=== PATIENT | male | born 1975 | race Caucasian/White ===

== ENCOUNTER 2018-05-26 13:34 | Emergency (ER) | payer OTHER ==
[~2018-05-26] VITALS: Ht 175.3 cm; Wt 87.5 kg
[~2018-05-26 13:34] MED LIST: ALTOPREV40 MG PO; ARTIFICIAL TEAR15 M1 OP; COUMADIN6 MG PO; METOPROLOL SUCC25 MG PO; OYSTER SHELL C NG; SERTRALINE HCL100 MG PO; TRIPLE ANTIBIOT28 GM TP; TYLENOL PM EX-1 EACH PO
== END 2018-05-26 14:15 | disposition home or self-care (01) ==
LOC: ED 13:34
PROC: 0HQGXZZ Repair Left Hand Skin, External Approach (ICD-10-PCS; principal; 2018-05-26)
DX: S61.213A Laceration without foreign body of left middle finger without damage to nail, initial encounter (principal); Z79.899 Other long term (current) drug therapy; Z79.01 Long term (current) use of anticoagulants; Z23 Encounter for immunization; W45.8XXA Other foreign body or object entering through skin, initial encounter; Y92.89 Other specified places as the place of occurrence of the external cause; Y99.0 Civilian activity done for income or pay
CPT/HCPCS: 12001; 90471; 90715; 99282

== ENCOUNTER 2018-12-01 14:37 | Emergency (ER) | payer OTHER ==
[~2018-12-01] VITALS: Ht 175.3 cm; Wt 87.5 kg
[2018-12-01] MEDS ORDERED: MECLIZINE HCL25 MG PO (17:34)
--- NOTE | 2018-12-01 23:20 | EKG ---
[facility] [address] [place], [place] [address] Signed Normal sinus rhythm Normal ECG No previous ECGs available Confirmed by MARY KAY BALL MD ([id number]) on 12/01/2018 11:20:05 PM Electronically Signed By: MARY KAY BALL MD 12/01/18 2320 PATIENT NAME: DONN CAROLINA Electrocardiogram DATE OF : 77 PHYSICIAN: MARY KAY BALL MD REPORT #: [id number] REPORT IS CONFIDENTIAL AND NOT TO BE RELEASED WITHOUT AUTHORIZATION
== END 2018-12-01 17:49 | disposition home or self-care (01) ==
LOC: ED 14:37
DX: R42 Dizziness and giddiness (principal); F41.9 Anxiety disorder, unspecified; Z79.01 Long term (current) use of anticoagulants; Z79.899 Other long term (current) drug therapy
CPT/HCPCS: 70450; 71045; 80053; 83880; 84484; 85025; 85610; 93005; 93010; 99285-25

== ENCOUNTER 2019-04-19 12:20 | Emergency (ER) | payer OTHER ==
[~2019-04-19] VITALS: Ht 175.3 cm; Wt 87.5 kg
--- OUTSIDE RECORDS SUMMARY | ~2019-04-19 | XMS | Clinical Summary ---
Demographics + + + | Address | [address] | | | [place] [address] | + + + | Home Phone | | + + + | Preferred Language | Unknown | + + + | Marital Status | Single | + + + | Cheondoism Affiliation | Unknown | + + + | Race | Unknown | + + + | Ethnic Group | Unknown | + + + Author + + + | Author | [facility] | + + + | Organization | [facility] | + + + | Address | Unknown | + + + | Phone | Unavailable | + + + Support + + +---------+ + | Name | Relationship | Address | Phone | + + +---------+ + | Paul Resendiz | ECON | Unknown | | + + +---------+ + | [employer] | ECON | Unknown | Unavailable | + + +---------+ + Care Team Providers + +------+ + | Care Mold Tooling Technician Name | Role | Phone | + +------+ + | Miquel Segovia MD | PP | | + +------+ + Allergies No Known Allergies Current Medications + + +--------+---------+------+------+-------+ | Prescription | Sig. | Disp. | Refills | Star | End | Statu | | | | | | t | Date | s | | | | | | Date | | | + + +--------+---------+------+------+-------+ | metoprolol | Take 25 mg by mouth | | | | | Activ | | (TOPROL-XL) 25 MG 24 | daily. | | | | | e | | hr tablet | | | | | | | + + +--------+---------+------+------+-------+ | sertraline | Take 150 mg by mouth | | | | | Activ | | (ZOLOFT) 100 MG | nightly. | | | | | e | | tablet | | | | | | | + + +--------+---------+------+------+-------+ | | Apply topically as | | | | | Activ | | neomycin-bacitracin- | needed. | | | | | e | | polymyxin | | | | | | | | (NEOSPORIN) | | | | | | | | [phone] ointment | | | | | | | + + +--------+---------+------+------+-------+ | acetaminophen | Take 500 mg by mouth | | | | | Activ | | (TYLENOL) 500 MG | every 6 (six) hours | | | | | e | | tablet | as needed. | | | | | | + + +--------+---------+------+------+-------+ | UNABLE TO FIND | CPAP machine | | | | | Activ | | | | | | | | e | + + +--------+---------+------+------+-------+ | Calcium | Take 500 mg by mouth | | | | | Activ | | Carbonate-Vitamin D | 2 (two) times | | | | | e | | (OYSTER SHELL | daily. | | | | | | | CALCIUM 500 + D PO) | | | | | | | + + +--------+---------+------+------+-------+ | polyvinyl alcohol | Place 1 drop into | | | | | Activ | | (LIQUIFILM TEARS) | both eyes as needed. | | | | | e | | 1.4 % ophthalmic | | | | | | | | solution | | | | | | | + + +--------+---------+------+------+-------+ | mupirocin | Apply 2 % topically | | | | | Activ | | (BACTROBAN) 2 % | as needed. | | | | | e | | ointment | | | | | | | + + +--------+---------+------+------+-------+ | cephALEXin | Take 500 mg by mouth | | | | | Activ | | (KEFLEX) 500 MG | as needed. Prior to | | | | | e | | capsule | dental work | | | | | | + + +--------+---------+------+------+-------+ | warfarin | Take 3 mg by mouth | | | | | Activ | | (COUMADIN) 3 MG | daily. [facility] | | | | | e | | tablet | regulates | | | | | | + + +--------+---------+------+------+-------+ | atorvastatin | Take 1 tablet by | 30 | 11 | /2 | 07/ | Activ | | (LIPITOR) 40 MG | mouth nightly. | tablet | | / | 3/20 | e | | tablet | | | | 18 | 19 | | + + +--------+---------+------+------+-------+ Active Problems + + + | Problem | Noted Date | + + + | Generalized anxiety disorder | 12/03/2018 | + + + | termite renewal inspector (current) use of anticoagulants | 11/13/2018 | + + + | Hypertension goal BP (blood pressure) < 130/80 | 05/25/2018 | + + + | Sleep apnea in adult | 05/25/2018 | + + + | Cognitive developmental delay | 05/25/2018 | + + + | H/O mitral valve replacement with mechanical valve | 12/23/2013 | + + + + + | Last Assessment & Plan: Hx PMV, MR. MVR 2008, On-X #33. | | Jail anticoagulation, target INR 2.5-3.5, managed by Care | | Team. Endocarditis prophylaxis reinforced. 40yo WM, | | history mitral valve replacement, chronic anticoagulation | | therapy. He is here with his caregiver. No incidence are | | reported. He remains active, denies any significant bruising or | | bleeding. Denies any new visual disturbances, dysarthria, | | dysphasia, lateralizing signs or symptoms. Tolerating | | medications. At this time no change in medical therapy. Recent | | Echocardiogram shows well preserved LVEF, mild prosthetic mitral | | valve stable with minimal gradient, stable. We did request | | labs, need to define goals with regards to lipid management. If | | the goal is primary prevention, it would be reasonable to more | | aggressive with medical therapy, consider changing lovastatin to | | high-dose atorvastatin.Hx CABG: no, MVR (On-X 33), 10/09/2009Hx | | PCI/stent: noHx Pacemaker/ICD: noLast Cath: naLast Echo, | | 07/22/2016 ([facility]): prelimenary report, LVEDd 58mm, LVEF | | 60-65%, MVR well seated, mean gradient 6mmHg, no MR noted.Last | | Stress Test, Cardiolite Stress, 09/13/2009: 10:20min Jaren, no | | chest pain, no ischemia detected, images "normal", LVEF 61%.ECG, | | 01/05/2015: sinus rhythm, OR at [facility], incomplete RBBB pattern. | + + + + + | Mixed hyperlipidemia | 12/23/2013 | + + + + + | Last Assessment & Plan: Hyperlipidemia, continue current med | | at current dose (lovastatin). Labs requested.Lab, 08/11/2015: T | | Chol: 212, LDL-Chol: 143, HDL-Chol: 47, Tri | | Liver enzymes NML, K: 4.4, BUN/Cr: 25/1.2 (GFR 71), | | glu: 81 TSH: 3.54, WBC: 4.3, H/H: | | 14.5/42.2, plt: 153 | + + Encounters +--------+---------+ + + + | Date | Type | Specialty | Care Team | Description | +--------+---------+ + + + | 04/15/ | Office | | Janet Campa | H/O mitral valve | | 2019 | Visit | | DEEPTHI Tripp | replacement with | | | | | | mechanical valve | | | | | | (Primary Dx); | | | | | | Hypertension goal BP | | | | | | (blood pressure) < | | | | | | 130/80; Sleep apnea | | | | | | in adult; Cognitive | | | | | | developmental delay; | | | | | | Mixed | | | | | | hyperlipidemia; | | | | | | Anticoagulated on | | | | | | Coumadin; Screening | | | | | | for iron deficiency | | | | | | anemia | +--------+---------+ + + + from Last 3 Months Family History + +------+--------+ + | Relation | Name | Status | Comments | + +------+--------+ + | Father | | Alive | | + +------+--------+ + | Mother | | Alive | | + +------+--------+ + Social History + +-------+ +--------+------+ | Tobacco Use | Types | Packs/Day | Years | Date | | | | | Used | | + +-------+ +--------+------+ | Never Smoker | | | | | + +-------+ +--------+------+ + +---+---+---+ | Smokeless Tobacco: | | | | | Never Used | | | | + +---+---+---+ + + +---------+ + | Alcohol Use | Drinks/We | oz/Week | Comments | | | ek | | | + + +---------+ + | No | 0 | 0.0 | 2 beeers every 2-3 months | | | Standard | | | | | drinks or | | | | | | | | | | equivalen | | | | | t | | | + + +---------+ + + + + | Sex Assigned at | Date Recorded | | | | + + + | Not on file | | + + + Last Filed Vital Signs + + + + | Vital Sign | Reading | Time Taken | + + + + | Blood Pressure | 102/64 | 04/15/2019 9:57 AM PDT | + + + + | Pulse | 68 | 04/15/2019 9:57 AM PDT | + + + + | Temperature | - | - | + + + + | Respiratory Rate | 18 | 10/15/2018 10:24 AM PST | + + + + | Oxygen Saturation | 97% | 04/15/2019 9:57 AM PDT | + + + + | Inhaled Oxygen | - | - | | Concentration | | | + + + + | Weight | 87.3 kg (192 lb 8 | 04/15/2019 9:57 AM PDT | | | oz) | | + + + + | Height | 175.3 cm (5' 9") | 04/15/2019 9:57 AM PDT | + + + + | Body Mass Index | 28.43 | 04/15/2019 9:57 AM PDT | + + + + Plan of Treatment + + + + + | Health Maintenance | Due Date | Last Done | Comments | + + + + + | Vaccine: Influenza | | 09/11/2016, 09/04/2012, | | | (Season Ended) | 9 | 11/06/2007, Additional history | | | | | exists | | + + + + + | Vaccine: | | 05/26/2018, 12/10/2013, | | | Dtap/Tdap/Td (9 - | 8 | 06/23/2010, Additional history | | | Td) | | exists | | + + + + + Results Not on filefrom Last 3 Months Insurance + +--------+ +------+-------+ + | Payer | Benefi | Subscriber | Type | Phone | Address | | | t Plan | ID | | | | | | / | | | | | | | Group | | | | | + +--------+ +------+-------+ + | MEDICAID | [place] | [id number] | | | [address] | | | [place] | | | | [place] | | | [place] | | | | [phone] | | | GENERAL OFFICE CLERK | | | | | + +--------+ +------+-------+ + + +--------+ +--------+ + + | Guarantor Name | Accoun | Relation to | Date | Phone | Billing Address | | | t Type | Patient | of | | | | | | | | | | + +--------+ +--------+ + + | DONN CAROLINA | Person | Self [birth year] Home: | [address] | | | al/Fam | | 1975 | [phone] [address] [place] | | | [place] | | [phone] | + +--------+ +--------+ + +
--- OUTSIDE RECORDS SUMMARY | ~2019-04-19 | XMS | Clinical Summary ---
Demographics + + + | Address | [address] | | | [place] [address] | + + + | Home Phone | | + + + | Preferred Language | Unknown | + + + | Marital Status | Single | + + + | Latter-Day Affiliation | Unknown | + + + | Race | Unknown | + + + | Ethnic Group | Unknown | + + + Author + + + | Author | [facility] | | | and [place] | + + + | Organization | [facility] | | | and [place] | + + + | Address | Unknown | + + + | Phone | Unavailable | + + + Support + + +---------+ + | Name | Relationship | Address | Phone | + + +---------+ + | Paul Resendiz | ECON | Unknown | | + + +---------+ + Care Team Providers + +------+ + | Care Tax Auditor Name | Role | Phone | + +------+ + | Miquel Lopes MD | PP | Unavailable | + +------+ + Allergies No Known Allergies Medications + + + +---------+------+------+-------+ | Medication | Sig | Dispensed | Refills | Star | End | Statu | | | | | | t | Date | s | | | | | | Date | | | + + + +---------+------+------+-------+ | carbamide peroxide | Place 5 drops in | | 0 | | | Activ | | (DEBROX) 6.5% otic | ear(s) as needed. | | | | | e | | solution | | | | | | | + + + +---------+------+------+-------+ | lovastatin | Take 40 mg by mouth | | 0 | | | Activ | | (MEVACOR) 40 MG | nightly. | | | | | e | | tablet | | | | | | | + + + +---------+------+------+-------+ | metoprolol | Take 25 mg by mouth | | 0 | | | Activ | | succinate | Daily. | | | | | e | | (TOPROL-XL) 25 mg 24 | | | | | | | | hr tablet | | | | | | | + + + +---------+------+------+-------+ | Oyster Shell 500 | Take 1 tablet by | | 0 | | | Activ | | MG TABS | mouth 2 times daily. | | | | | e | + + + +---------+------+------+-------+ | SERTRALINE HCL PO | Take 150 mg by mouth | | 0 | | | Activ | | | Daily. | | | | | e | + + + +---------+------+------+-------+ | | Apply topically. | | 0 | | | Activ | | Neomycin-Bacitracin- | PRN cut & abrasions | | | | | e | | Polymyxin (TRIPLE | | | | | | | | ANTIBIOTIC) | | | | | | | | 3.5-400-5000 OINT | | | | | | | + + + +---------+------+------+-------+ | Acetaminophen | Take by mouth. OTC | | 0 | | | Activ | | (TYLENOL PO) | Extra Strength PO | | | | | e | | | PRN pain or fever | | | | | | + + + +---------+------+------+-------+ | warfarin | Take 5 mg by mouth | | 0 | | | Activ | | (COUMADIN) 5 mg | Every other day. | | | | | e | | tablet | | | | | | | + + + +---------+------+------+-------+ | warfarin | Take 6 mg by mouth | | 0 | | | Activ | | (COUMADIN) 6 MG | Every other day. | | | | | e | | tablet | | | | | | | + + + +---------+------+------+-------+ | polyvinyl alcohol | 1 drop as needed. | | 0 | | | Activ | | (ARTIFICIAL TEARS) | | | | | | e | | 1.4% ophthalmic | | | | | | | | solution | | | | | | | + + + +---------+------+------+-------+ Active Problems + + + | Problem | Noted Date | + + + | Lumbar radiculopathy | 11/24/2012 | + + + | Scoliosis | 11/24/2012 | + + + | Spondylolisthesis, grade 2 | 11/24/2012 | + + + | Sleep apnea | | + + + | Anxiety | | + + + | Back pain | | + + + Social History + +-------+ +--------+------+ | [...] + + +---------+ + | No | | | | + + +---------+ + + + + | Sex Assigned at | Date Recorded | | | | + + + | Not on file | | + + + + + + + | Job Start Date | Occupation | Industry | + + + + | Not on file | Not on file | Not on file | + + + + + + + + | Travel History | Travel Start | Travel End | + + + + + + | No recent travel history available. | + + Last Filed Vital Signs + + + + | Vital Sign | Reading | Time Taken | + + + + | Blood Pressure | 110/75 | 02/17/20131048 PDT | + + + + | Pulse | 72 | 02/17/20131048 PDT | + + + + | Temperature | - | - | + + + + | Respiratory Rate | 18 | 02/17/20131048 PDT | + + + + | Oxygen Saturation | - | - | + + + + | Inhaled Oxygen | - | - | | Concentration | | | + + + + | Weight | 90.7 kg (200 lb) | 02/17/20131048 PDT | + + + + | Height | 182.9 cm (6') | 02/17/20131048 PDT | + + + + | Body Mass Index | 27.12 | 02/17/20131048 PDT | + + + + Plan of Treatment + + + + + | Health Maintenance | Due Date | Last Done | Comments | + + + + + | Vaccine: | | | | | Dtap/Tdap/Td (1 - | 5 | | | | Tdap) | | | | + + + + + | Vaccine: Influenza | | | | | (Season Ended) | 9 | | | + + + + + Results Not on filefrom Last 3 Months Insurance + +--------+ +--------+ +---------+--------+ | Payer | Benefi | Subscriber | Effect | Phone | Address | Type | | | t Plan | ID | liyah | | | | | | / | | Dates | | | | | | Group | | | | | | + +--------+ +--------+ +---------+--------+ | [employer] | [employer] | [id number] | | [phone] | | Medica | | MEDICAID HMO | HEALTH | | 012-Pr | 1 | | id | | | MDCD | | esent | | | | | | HMO [place] | | | | | | + +--------+ +--------+ +---------+--------+ + +--------+ +--------+ + + | Guarantor Name | Accoun | Relation to | Date | Phone | Billing Address | | | t Type | Patient | of | | | | | | | | | | + +--------+ +--------+ + + | Roger Grider | Person | Self [birth year] | [address] | | | al/Fam | | 1975 | [phone] | [address] [place] | | | [place] | | | [address] (Home) | [phone] | + +--------+ +--------+ + + Advance Directives Patient has advance care planning documents on file. For more information, please contact:[facility] [place] [address]"
--- OUTSIDE RECORDS SUMMARY | ~2019-04-19 | XMS | Clinical Summary ---
Demographics + + + | Address | [address] | | | [place] [address] | + + + | Home Phone | | + + + | Preferred Language | Unknown | + + + | Marital Status | Single | + + + | Zoroastrianism Affiliation | Unknown | + + + | Race | Unknown | + + + | Ethnic Group | Unknown | + + + Author + + + | Author | [facility] | | | and [place] | + + + | Organization | [facility] | | | [...] Team Providers + +------+ + | Care Service Tester Name | Role | Phone | + [...] | [employer] | [employer] | [id number] | | [phone] | | Medica | [...] [place] | | | [address] (Home) | [phone] | + +--------+ +--------+ + + Advance Directives Patient has advance care planning documents on file. For more information, please contact:[facility] [place] [address]"
--- OUTSIDE RECORDS SUMMARY | ~2019-04-19 | XMS | Encounter Summary ---
Demographics + + + | Address | [address] [facility] [address] | | | [place] [address] | + + + | Home Phone | | + + + | Preferred Language | Unknown | + + + | Marital Status | Single | + + + | Oriental Orthodox Affiliation | Unknown | + + + | Race | Unknown | + + + | Ethnic Group | Unknown | + + + Author + + + | Author | [facility] [facility] | + + + | Organization | [facility] | + + + | Address | Unknown | + + + | Phone | Unavailable | + + + Support + + +---------+ + | Name | Relationship | Address | Phone | + + +---------+ + | Paul Resendiz | ECON | Unknown | | + + +---------+ + | [employer] | ECON | Unknown | Unavailable | + + +---------+ + Care Team Providers + +------+ + | Care It Infrastructure Engineer Name | Role | Phone | + +------+ + | Miquel Segovia MD | PCP | | + +------+ + Reason for Referral Echo (Routine) + +--------+ + + + + | Status | Reason | Specialty | Diagnoses / | Referred By | Referred To | | | | | Procedures | Contact | Contact | + +--------+ + + + + | Pending | | | Diagnoses | Katheryn, | | | Review | | | History of | Janet Tripp | | | | | | mitral valve | RELAY CHECKER [address] | | | | | | replacement | [address] | | | | | | with | Tomas F | | | | | | mechanical | [place], [place] | | | | | | valve | [id number] | | | | | | Hypertension | Phone: | | | | | | goal BP | [phone] | | | | | | (blood | Fax: | | | | | | pressure) < | [phone] | | | | | | 130/80 | | | | | | | Anticoagulat | | | | | | | ed on | | | | | | | Coumadin | | | | | | | Procedures | | | | | | | Echo cardiac | | | | | | | adult | | | | | | | complete | | | + +--------+ + + + + Reason for Visit + + + | Reason | Comments | + + + | Follow-up | 6 mo | + + + Routine Exam (Routine) + +--------+ + + + + | Status | Reason | Specialty | Diagnoses / | Referred By | Referred To | | | | | Procedures | Contact | Contact | + +--------+ + + + + | Authorized | | Nurse | Diagnoses | Carnaghan, | Katheryn, | | | | Practitioner | | Janet Tripp, | Janet Tripp, | | | | / Cardiology | Hyperlipidem | RELAY CHECKER [address] | RELAY [address]ER [address] | | | | | ia, | [address] | [address] | | | | | unspecified | Tomas F | Tomas F | | | | | Echo Done @ | [place], [place] | [place], [place] | | | | | STA-3 month | [id number] | [address] Phone: | | | | | FU; last ov | Phone: | [phone] | | | | | 05/26/2017 | [phone] | Fax: | | | | | w/. | Fax: | [phone] | | | | | Luca;....s | [phone] | | | | | | p | | | | | | | Procedures | | | | | | | CRD FOLLOW | | | | | | | UP | | | + +--------+ + + + + Encounter Details +--------+---------+ + + + | Date | Type | Department | Care Team | Description | +--------+---------+ + + + | 04/15/ | Office | [facility] Gonzalez | Janet Campa | H/O mitral valve | | 2019 | Visit | Cardiology [place] | [address]EEP[address]I Tripp [address] | replacement with | | | | [address] | Nolber[address] F | mechanical valve | | | | [address] | [place] [address] | (Primary Dx); | | | | [place] [address] | [phone] | Hypertension goal BP | | | | [phone] | | (blood pressure) < | | [...] | anemia | +--------+---------+ + + + Social History + +-------+ [...] on file | | + + + as of this encounter Last Filed Vital Signs + + + [...] + + + | Respiratory Rate | - | - | + + + + | Oxygen [...] AM PDT | + + + + in this encounter Instructions Patient Instructions - Janet Campa ARNP - 04/15/2019 10:00 AM PDTI have ordered y ou fasting labs to be done at [facility] in August or or September I also ordered you an Echo to be done at [facility] In September, at beginning er, F/u with me in October I made no changes to medications today in this encounter Progress Notes Janet Campa, RELAY CHECKER - 04/15/2019 10:00 AM PDTFormatting of this note may be differen t from the original. Date of visit: 04/15/2019 Primary Care Physician: Miquel Segovia CHIEF COMPLAINT: Chief Complaint Patient presents with Follow-up 6 mo HISTORY OF PRESENT ILLNESS: Mr. Roger Grider is a 43-year-old man who is here today for 6 month follow-up. He is accompanied today by Rental Sales Associate,Chaitanya, from [employer] who contributed to histo ry. He has a history of prolapsed mitral valve with a mechanical mitral valve replacement in 2008 on long-term anticoagulation with a target INR of 2.5-3.5( monitored by the Coumadin pj milligan at [facility]), hypertension, hyperlipidemia, seizures disorder, and kyph oscoliosis, multiple sclerosis, and sleep apnea. 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 His current and previous testing and procedures are detailed below. Today, he reports he continues to feel well and denies any chest pain, dizziness, syncope , dyspnea with exertion. He denies any surgeries, hospitalization or illnesses since last s een before he was seen in the emergency room on December 01, 2018 for dizziness and I reviewe d the ER note. ER note also mentions chest pain but he and his manager data deny that he had any chest pain just dizziness and vertigo. His EKG performed in the emergency room showed normal sinus rhythm at 73 bpm with no isch emic changes, labs were normal with a negative troponin,and INR was therapeutic at 2.5., BN P was 6, and CT of head was reported as no acute pathology, no acute or chronic infarct, no hemorrhage, no mass, or mass-effect, and no abnormal extra-axial fluid collection He and his case manager specialist INR has been mildly labile as documented below, but denies any ble eding. They brought in his medication list today and I reviewed personally. He has his medicat ions and bubble packs, and is allowed to take them himself, but is supervised for compliance . He continues to wear his CPAP nightly, except for when he visits his mother, who apparently finds it noisy. His manager data reports today that they have intervened and he now also wears his CPAP fo r overnight visits as his mother REVIEW OF SYSTEMS: Negative except for pertinent items noted in HPI. Constitutional: Denies fatigue or unexplained weight loss. Appetite is good. Weight Stab le Denies night sweats fevers or chills HENT: Denies nosebleeds. Denies hearing problems. Denies dysphagia Eyes: Denies visual disturbance or double vision. Denies history of cataracts or glaucoma or macular degeneration. Respiratory/Sleep:: Denies cough and shortness of breath. Denies hemoptysis or excessive s putum production. Denies orthopnea, PND. Hx Sleep apnea , on CPAP nightly , Cardiovascular: Denies chest pain, palpitations and leg swelling. Denies history of rheuma tic fever. Denies claudication . Gastrointestinal: Denies history of gastroesophageal reflux disease . Denies nausea, vomi ting, abdominal pain and blood in stool. Genitourinary: Denies hematuria. Musculoskeletal: kyphoscoliosis , occasional back pain Denies myalgias, and arthralgias. Skin: Denies color change. Denies rash or lesions Neurological: Episode of dizziness in November, now resolved. denies history of stroke/[place] sient ischemic attack.history of seizures, as a child . Denies syncope and numbness. Denie s focal motor or sensory deficits Hematological/Oncology Does not bruise/bleed easily. Denies history of cancer Endocrine: Denies diabetes or thyroid disease. Denies excessive thirst or hunger. Psychiatric/Behavioral: Cognitive developmental delay , depression/anxiety, improved with sertraline denies any history of other psychiatric illness. Vaccines: Current on 2018 flu vaccine at [facility] . pneumonia vaccine, not needed yet Habits/Social : Denies history of smoking. EtOH use.; 2 beers every 2 months Drinks 2-3 servings of caffeine daily . Denies recreational or illicit drug use. Exercises with alistair ate and tolerates. Lives in own apartment 24 hr staff support from [employer], works janSensulinial work , 5 days per week, very active job. Lives in [place] [facility] Medications Prior to Visit Medication Sig Dispense Refill acetaminophen (TYLENOL) 500 MG tablet Take 500 mg by mouth every 6 (six) hours as neede d. atorvastatin (LIPITOR) 40 MG tablet Take 1 tablet by mouth nightly. 30 tablet 11 Calcium Carbonate-Vitamin D (OYSTER SHELL CALCIUM 500 + D PO) Take 500 mg by mouth 2 (t wo) times daily. cephALEXin (KEFLEX) 500 MG capsule Take 500 mg by mouth as needed. Prior to dental work metoprolol (TOPROL-XL) 25 MG 24 hr tablet Take 25 mg by mouth daily. mupirocin (BACTROBAN) 2 % ointment Apply 2 % topically as needed. yqybqawt-zdggckhqrp-ihkomjvjj (NEOSPORIN) 5-400-5000 ointment Apply topically as neede d. polyvinyl alcohol (LIQUIFILM TEARS) 1.4 % ophthalmic solution Place 1 drop into both ey es as needed. sertraline (ZOLOFT) 100 MG tablet Take 150 mg by mouth nightly. UNABLE TO FIND CPAP machine warfarin (COUMADIN) 3 MG tablet Take 3 mg by mouth daily. [facility] regulates No facility-administered medications prior to visit. PHYSICAL EXAM: Wt Readings from Last 3 Encounters: 04/15/19 87.3 kg (192 lb 8 oz) 10/15/18 85.2 kg (187 lb 14.4 oz) 08/24/18 84.1 kg (185 lb 6.4 oz) Temp Readings from Last 3 Encounters: No data found for Temp BP Readings from Last 3 Encounters: 04/15/19 102/64 10/15/18 106/66 08/24/18 106/68 Pulse Readings from Last 3 Encounters: 04/15/19 68 10/15/18 68 08/24/18 63 GENERAL: Well developed, well nourished, in no distress. Appears approximately stated age . HEENT: Normocephalic, atraumatic. EYES: PERRL, EOM normal. MOUTH: Oral mucosae moist, dentition adequate, no lesions noted NECK: No JVD, lymphadenopathy, thyromegaly, bruits. Carotid pulses are 2+ bilaterally LUNGS/CHEST: Kyphoscoliosis Clear bilaterally, with no rales, rhonchi or wheezing noted, r espirations unlabored HEART: Sternotomy well healed,Keloid tissue no crepitus. Nondisplaced PMI, regular rate an d rhythm, S1, S2 normal. Valve click No murmurs, rubs or gallops noted. ABDOMEN: Soft, nontender, no organomegaly, masses or bruits. Bowel sounds are normal in a ll 4 quadrants. The abdominal aortic pulsation is not palpable. EXTREMITIES: No edema. Radial pulses 2+ bilaterally. Femoral pulses are 2+ bilaterally wi thout bruits. DP and PT pulses are 2+ bilaterally. No clubbing. SKIN: Warm and dry, capillary refill is normal, no lesions. NEUROLOGIC: Awake, alert and oriented x 3. No focal motor or sensory deficits. PSYCHIATRIC: Appropriate, affect appears normal DATA: Blood tests: No results found for: WBC, RBC, HGB, HCT, PLT Lab Results Component Value Date NA 142 08/24/2018 K 4.4 08/24/2018 CL 104 08/24/2018 CO2 26 08/24/2018 ANIONGAP 16.4 08/24/2018 GLUF 86 08/24/2018 BUN 15 08/24/2018 CREATININE 1.02 08/24/2018 BCR 14.7 08/24/2018 CA 8.7 08/24/2018 EGFR 80 08/24/2018 Lab Results Component Value Date CHOL 157 08/24/2018 TRIG 190 (A) 08/24/2018 LDL 85 08/24/2018 GLUF 86 08/24/2018 No results found for: BNP, CKTOTAL, TSH, CRP No results found for: METF, NMETFX, TFNMFX, LOANUMS31MAD, XKHKNO88TBV, TOTEPI PROCEDURES/IMAGING Hx CABG: no, MVR (On-X 33), 10/09/2009: Dr. Heart, mitral valve prolapse Last Stress Test, Cardiolite Stress, 09/13/2009: 10:20 min Jaren, no chest pain, no ischemia detected, images "normal", LVEF 61%. ECHO: Last Echo: 09/08/2018: ([facility]): Sinus rhythm. Technically adequate study. EF 65-70 percent. LV normal in size and wall thickness. RV normal in size and function. Moderate left atri al enlargement improved from marked. RA WNL. Aortic valve trileaflet, no aortic stenosis o r regurgitation. Mechanical mitral valve well seated, mitral valve peak/mean gradient is 10 .61 mmHg/4.30 mmHg. Tricuspid valve normal, no TR. No pulmonary pressures due to absence o f TR jet. No pericardial or pleural effusion. IVC WNL, normal CVP. Aortic root, ascending aorta are normal in size Echo: : EF 60-65 percent. LV normal in size and wall thickness. RV normal in siz e and function. Marked left atrial enlargement. RA normal size. Aortic valve trileaflet, normal, no AR or ASD. Mechanical mitral valve replacement is well seated w/ normal function . Mitral valve peak/mean 9.45/3.57 mmHg. Tricuspid valve normal. PASP not assessed due to absence of adequate TR jet. Pulmonic valve normal. No pericardial or pleural effusion IVC normal, normal CVP. Aortic root, ascending aorta, and aortic arch are normal Echo: 07/22/2016 ([facility]): ,LVEF 60-65%, normal chamber size, aortic valve trileaflet with no stenosis or regurgitation. Mechanical MVR well seated, mean gradient 4.52 mmHg, no MR noted. Trace TR, EKG: ECG, 01/05/2015: sinus rhythm, [place] at ULN, incomplete RBBB pattern. Rate 73 bpm, KY 208 ms, QRS 94 ms, QTC 396 ms, reyes Zamora. By me EK07/03: Sinus rhythm with first-degree AV block, incomplete right bundle branch bl ock, rate 73 bpm, KY 212 ms, QRS 100 ms, QTC 394 ms (personally reviewed by me in the office today and KY was increased slightly since done in December 2014, otherwise no significant c hanges) EK08/24/2018: Normal sinus rhythm with first-degree AV block,, incomplete right bundle b ranch block. Rate 62 bpm. KY 208 ms, QRS 100 ms, QTC 385 ms, tracing personally reviewed by me, and no significant change since EKG performed in June 2017 EK12/01/2018: ([facility] ER): Normal sinus rhythm, normal EKG. Rate 73 bpm, KY 194 ms, QRS 94 ms, QTC 401 ms [place] personally reviewed by me, and similar EKG performed in August 2018 ex cept for first-degree AV block has resolved LABS: Lab, 08/11/2016: T Chol: 212, LDL-Chol: 143, HDL-Chol: 47, Tri Liver enzymes NML, K: 4.4, BUN/Cr: 25/1.2 (GFR 71), glu: 81 TSH: 3.54, WBC: 4.3, H/H: 14.5/42.2, plt: 1 Labs: 10/08/2017: Lipids: (lovastatin 40 mg) Cholesterol 244, triglycerides 131, HDL 51.2, LDL 167, VLDL 26, ratio 4.8, non-HDL cholesterol 193. CMP: Sodium 139, potassium 4.1, chlor maureen 103, glucose 76, BUN 32, creatinine 1.05, GFR 78, AST 32, ALT 29, alk phos 118, total bi lirubin 0.6, albumin 4. Labs: 08/24/2018: Lipids: (Atorvastatin 40): Cholesterol 167, triglycerides 190, HDL 34.3, LDL 85, VLDL 38, ratio 4.6, non-HDL cholesterol 123. CMP: Sodium 142, potassium 4.4, chlori de 104, glucose 86, BUN 15, creatinine 1.02, GFR 80, AST 24, ALT 19, alk phos 120, total robbie irubin 0.6, albumin 4.5 Labs: 12/01/2018: ( [facility] ER) : CBC: WBC 6, RBC 5.19, hemoglobin 15.4, hematocrit 46.5, platel ets 155. INR 2.5. CMP: Glucose 120, BUN 18, creatinine 1.05, GFR 77, sodium 138, potassium 4.5, chloride 103, albumin 4.8 total bili 0.5, AST 36, ALT 31, alk phos 124, troponin T <0. 010 BNP 6 INR: 02/11/2019: 2.3. INR: 02/23/2019: 2.5 INR: 03/18/2019: 3.8. INR: 04/01/2019: 3.8 ASSESSMENT & PLAN: He is here today with his manager data, from [employer] for 6-month follow-up. He has problems as detailed below. As discussed in HPI, ER work-up was benign for any cardiac, or neurological problems, and d ischarged home on meclizine for dizziness, and has had no further episodes since. He reports he continues to wear his CPAP nightly, and that sleep apnea is well controlle d. He is asymptomatic, and reports excellent activity tolerance, heart rate and blood pressu re well controlled on current medications. I made no changes to cardiac medications today and he should continue atorvastatin 40 mg hs, metoprolol XL 25 mg daily, and Coumadin for mechanical mitral valve target INR 2.5-3.5. I will see him back in 6 months, and ordered updated echo and labs to be performed [facility] for evaluation of his mechanical mitral valve and hyperlipidemia. I will see him ben k in October, but sooner if needed. 1. H/O mitral valve replacement with mechanical valve 2. Hypertension goal BP (blood pressure) < 130/80 3. Sleep apnea in adult 4. Cognitive developmental delay 5. Mixed hyperlipidemia 6. Anticoagulated on Coumadin 7. Screening for iron deficiency anemia Orders Placed This Encounter Procedures Comprehensive metabolic panel Lipid panel CBC W/Auto Diff (Reflex to Manual) Echo cardiac adult complete The following portions of the patient's history were personally reviewed by me and updated as appropriate: EKG tracings, other specialty provider and PCP notes, any Hospital admission and discharge summaries, any ER records , current and previous cardiac testing and procedure reports and data, medication bubble packs NOT brought to visit today Allergies, current medications.labs Family history, past medical history, past social history, past surgical history. Problem list. Janet Campa [facility] Cardiology 04/15/2019in this encounter Plan of Treatment + +--------+ + + | Name | Priori | Associated Diagnoses | Order Schedule | | | ty | | | + +--------+ + + | Echo cardiac adult complete | Routin | H/O mitral valve | Expected: | | | e | replacement with | 09/10/2019, Expires: | | | | mechanical valve | 10/15/2020 | | | | Hypertension goal BP | | | | | (blood pressure) < | | | | | 130/80 | | | | | Anticoagulated on | | | | | Coumadin | | + +--------+ + + | Comprehensive metabolic panel | Routin | Hypertension goal | Expected: | | | e | BP (blood pressure) | 08/10/2019, Expires: | | | | < 130/80 Mixed | 10/15/2020 | | | | hyperlipidemia | | + +--------+ + + | Lipid panel | Routin | Mixed | Expected: | | | e | hyperlipidemia | 08/10/2019, Expires: | | | | | 10/15/2020 | + +--------+ + + | CBC W/Auto Diff (Reflex to | Routin | Anticoagulated on | Expected: | | Manual) | e | Coumadin Screening | 08/10/2019, Expires: | | | | for iron deficiency | 10/15/2020 | | | | anemia | | + +--------+ + + as of this encounter Visit Diagnoses + + | Diagnosis | + + | H/O mitral valve replacement with mechanical valve - Primary | + + | Heart valve replaced by other means | + + | Hypertension goal BP (blood pressure) < 130/80 | + + | Unspecified essential hypertension | + + | Sleep apnea in adult | + + | Cognitive developmental delay | + + | Mixed hyperlipidemia | + + | Anticoagulated on Coumadin | + + | Encounter for therapeutic drug monitoring | + + | Screening for iron deficiency anemia | + +
--- OUTSIDE RECORDS SUMMARY | ~2019-04-19 | XMS | Clinical Summary ---
Demographics + + + | Address | [address] [facility] [address] | | | [place] [address] | + + + | Home Phone | | + + + | Preferred Language | Unknown | + + + | Marital Status | Single | + + + | Yazdanism Affiliation | Unknown | + + + | Race | Unknown | + + + | Ethnic Group | Unknown | + + + Author + + + | Author | [facility] | + + + | Organization | [facility] | + + + | Address | Unknown | + + + | Phone | Unavailable | + + + Support + + +---------+ + | Name | Relationship | Address | Phone | + + +---------+ + | Paul Resendiz | ECON | Unknown | | + + +---------+ + | [employer] | ECON | Unknown | Unavailable | + + +---------+ + Care Team Providers + +------+ + | Care Bioinformatics Software Engineer Name | Role | Phone | [...] | | (COUMADIN) 3 MG | daily. [facility] | | | | | e [...] | 12/03/2018 | + + + | intermission coordinator (current) use of anticoagulants | 11/13/2018 | [...] MR. MVR 2008, On-X #33. | | [place] anticoagulation, target INR 2.5-3.5, managed by Care [...] noLast Cath: naLast Echo, | | 07/22/2016 ([facility]): prelimenary report, LVEDd 58mm, LVEF | | 60-65%, MVR well seated, mean gradient 6mmHg, no MR noted.Last | | Stress Test, Cardiolite Stress, 09/13/2009: 10:20min Jaren, no | | chest pain, no ischemia detected, images "normal", LVEF 61%.ECG, | | 01/05/2015: sinus rhythm, [place] at ULN, incomplete RBBB pattern. | + [...] +------+-------+ + | MEDICAID | [place] | [id number] | | | [address] | | | [place] | | | | [place] | | | [place] | | | | [address] | | | [address] | | | | | + +--------+ [...] Self | [birth year] Home: | [address] | | | al/Fam | | 1975 | [phone] [address] [place] | | | [place] | | | [phone] | [phone] | + +--------+ +--------+ + +
--- OUTSIDE RECORDS SUMMARY | ~2019-04-19 | XMS | Encounter Summary ---
Demographics + + + | Address | [address] [facility] [address] | | | [place] [address] | + + + | Home Phone | | + + + | Preferred Language | Unknown | + + + | Marital Status | Single | + + + | Pentecostal Affiliation | Unknown | + + + | Race | Unknown | + + + | Ethnic Group | Unknown | + + + Author + + + | Author | Wesly [facility] | + + + | Organization | [facility] | + + + | Address | Unknown | + + + | Phone | Unavailable | + + + Support + + +---------+ + | Name | Relationship | Address | Phone | + + +---------+ + | Paul Resendiz | ECON | Unknown | | + + +---------+ + | [employer] | ECON | Unknown | Unavailable | + + +---------+ + Care Team Providers + +------+ + | Care Coding Compliance Auditor Name | Role | Phone | [...] | | | | mitral valve | [address] | | | | | | replacement | [address] | | | | | | with | [address]omas [address] | | | | | | mechanical | [place], [place] | | | | | | valve | [address] | | | | | | Hypertension | Phone: | | | | | | goal BP | [phone] | | | | | | (blood | Fax: | | | | | | pressure) < | [phone] | | | | | | 130/80 [...] | | / Cardiology | Hyperlipidem | [address] | [address] | | | | | ia, | [address] | [address] | | | | | unspecified | Tomas [place] | Tomas F | | | | | Echo Done @ | [place], [place] | [place], [place] | | | | | STA-3 month | [address] | [address] Phone: | | | | | FU; last ov | Phone: | [phone] | | | | | 05/26/2017 | [phone] | Fax: | | | | | w/. | Fax: | [phone] | | | | | Luca;....s | [phone] | | | | | | p [...] | | | [address] | [place] [address] | (Primary Dx); | | | | [place] [address] | [phone] | Hypertension goal BP | | | | [phone] | | (blood pressure) < | | [...] ou fasting labs to be done at [facility] in August or or September I also ordered you an Echo to be done at [facility] In September, at beginning er, F/u with me in October I made no changes to medications today in this encounter Progress Notes Janet Campa, READING AIDE - 04/15/2019 10:00 AM PDTFormatting of this note may be differen t from the original. Date of visit: 04/15/2019 Primary Care Physician: Miquel Segovia CHIEF COMPLAINT: Chief Complaint Patient presents with Follow-up 6 mo HISTORY OF PRESENT ILLNESS: Mr. Roger Grider is a 43-year-old man who is here today for 6 month follow-up. He is accompanied today by Driver Education Instructor,Chaitanya, from [employer] who contributed to histo ry. He has a history of prolapsed mitral valve with a mechanical mitral valve replacement in 2008 on long-term anticoagulation with a target INR of 2.5-3.5( monitored by the Coumadin pj milligan at [facility]), hypertension, hyperlipidemia, seizures disorder, and kyph oscoliosis, multiple sclerosis, and sleep apnea. He also has cognitive development disorder , but does live in his own apartment at [facility] on living facility in [place] ,with 24-hour support and manages to hold [...] mentions chest pain but he and his program management intern deny that he had any chest pain [...] abnormal extra-axial fluid collection He and his counter caser INR has been mildly labile as documented [...] mother, who apparently finds it noisy. 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 Lives in [place] Outpatient Medications Prior to Visit Medication Sig [...] ointment Apply 2 % topically as needed. logirbju-issmkxiwwb-vmnhxnwjo (NEOSPORIN) 5-400-5000 ointment Apply topically as neede d. polyvinyl alcohol (LIQUIFILM TEARS) 1.4 % ophthalmic solution Place 1 drop into both ey es as needed. sertraline (ZOLOFT) 100 MG tablet Take 150 mg by mouth nightly. UNABLE TO FIND CPAP machine warfarin (COUMADIN) 3 MG tablet Take 3 mg by mouth daily. [facility] regulates No facility-administered medications prior to [...] No results found for: METF, NMETFX, TFNMFX, [id number], [id number], TOTEPI PROCEDURES/IMAGING Hx CABG: no, MVR (On-X [...] Trace TR, EKG: ECG, 01/05/2015: sinus rhythm, MN at ULN, incomplete RBBB pattern. Rate 73 bpm, MN 208 ms, QRS 94 ms, QTC 396 ms, reyes Zamora. By me EK07/03: Sinus rhythm with first-degree AV block, incomplete right bundle branch bl ock, rate 73 bpm, MN 212 ms, QRS 100 ms, QTC 394 ms (personally reviewed by me in the office today and MN was increased slightly since done in December 2014, otherwise no significant c hanges) EK08/24/2018: Normal sinus rhythm with first-degree AV block,, incomplete right bundle b ranch block. Rate 62 bpm. MN 208 ms, QRS 100 ms, QTC 385 ms, tracing personally reviewed by me, and no significant change since EKG performed in June 2017 EK12/01/2018: ([facility]): Normal sinus rhythm, normal EKG. Rate 73 bpm, MN 194 ms, QRS 94 ms, QTC 401 [...] irubin 0.6, albumin 4.5 Labs: 12/01/2018: ( [facility]) : CBC: WBC 6, RBC [...] PLAN: He is here today with his program management intern, from [employer] for 6-month follow-up. He has problems as [...] and labs [facility] for evaluation of his mechanical mitral valve [...] past surgical history. Problem list. Janet Campa [facility] 04/15/2019in this encounter Plan of [...]
[~2019-04-19 12:20] MED LIST changes: +MECLIZINE HCL25 MG PO
[2019-04-19] MEDS ORDERED: CEFUROXIME500 MG PO (16:52)
== END 2019-04-19 18:44 | disposition home or self-care (01) ==
LOC: ED 12:20
DX: J18.9 Pneumonia, unspecified organism (principal); F41.9 Anxiety disorder, unspecified; Z79.01 Long term (current) use of anticoagulants; Z79.899 Other long term (current) drug therapy
CPT/HCPCS: 74177; 76705; 80053; 83690; 85025; 85610; 99284-25; C9113; J0696; J1885; J2405; J7030; Q9967

== ENCOUNTER 2022-05-27 08:43 | Emergency (ER) | payer MEDICARE, OTHER ==
[~2022-05-27] VITALS: Ht 175.3 cm; Wt 87.5 kg
[~2022-05-27 08:43] MED LIST changes: +CEFUROXIME500 MG PO
[2022-05-27] MEDS ORDERED: ATORVASTATIN CA80 MG PO (12:40)
[2022-05-27] MEDS ORDERED: WARFARIN SODIUM3 MG PO (12:40)
[2022-05-27] MEDS ORDERED: LO-DOSE ASPIRIN81 MG PO (12:40)
[2022-05-27] MEDS ORDERED: MUPIROCIN22 GM TOP (13:09)
--- NOTE | 2022-05-28 12:13 | EKG ---
[facility] [address] [facility] [place] [address] Signed Sinus rhythm with 1st degree AV block Incomplete right bundle branch block Borderline ECG When compared with ECG of 01-DEC-2018 14:47, No significant change was found Confirmed by MARY KAY BALL MD ([id number]) on 05/28/2022 12:13:40 PM Electronically Signed By: MARY KAY BALL MD 05/28/22 1213 PATIENT NAME: GEDONNALEX HILLCE Electrocardiogram DATE OF : 77 PHYSICIAN: MARY KAY BALL MD REPORT #: [id number] REPORT IS CONFIDENTIAL AND NOT TO BE RELEASED WITHOUT AUTHORIZATION
== END 2022-05-27 13:28 | disposition home or self-care (01) ==
LOC: ED 08:43
DX: R41.82 Altered mental status, unspecified (principal); G47.30 Sleep apnea, unspecified; Z20.822 Contact with and (suspected) exposure to COVID-19; Z79.899 Other long term (current) drug therapy; Z79.01 Long term (current) use of anticoagulants
CPT/HCPCS: 36415; 70450; 71045; 72125; 80053; 81001; 82803; 85025; 85610; 85730; 93005; 93010; 99285-25; C9803; U0003

== ENCOUNTER 2022-07-19 22:03 | Emergency (ER) | payer MEDICARE, OTHER ==
[~2022-07-19] VITALS: Ht 175.3 cm; Wt 90.0 kg
[~2022-07-19 22:03] MED LIST changes: +ATORVASTATIN CA80 MG PO; +LO-DOSE ASPIRIN81 MG PO; +MUPIROCIN22 GM TOP; +WARFARIN SODIUM3 MG PO
[2022-07-19] MEDS ORDERED: LEVOTHYROXINE25 MCG PO (22:34)
== END 2022-07-19 23:24 | disposition home or self-care (01) ==
LOC: ED 22:03
DX: S90.31XA Contusion of right foot, initial encounter (principal); E78.5 Hyperlipidemia, unspecified; G47.30 Sleep apnea, unspecified; Z79.899 Other long term (current) drug therapy; Z79.82 Long term (current) use of aspirin; Z79.01 Long term (current) use of anticoagulants; X58.XXXA Exposure to other specified factors, initial encounter
CPT/HCPCS: 73630; 99283-25

== ENCOUNTER 2023-05-20 14:33 | Emergency (ER) | payer MEDICARE, OTHER ==
[~2023-05-20] VITALS: Ht 175.3 cm; Wt 89.8 kg
--- OUTSIDE RECORDS SUMMARY | ~2023-05-20 | XMS | Continuity of Care Document ---
Demographics + + + | Address | [address] | | | [place] [address] | + + + | Preferred Language | Unknown | + + + | Marital Status | Never | + + + | Episcopalian Affiliation | Unknown | + + + | Race | White | + + + | Ethnic Group | Not or | + + + Author + + + | Author | [facility] | + + + | Organization | [facility] | + + + | Address | [address] | | | [place] [address] | + + + | Phone | | + + + Care Team Providers + + + + | Care Cadmium Plater Name | Role | Phone | + + + + Unavailable | Unavailable | + + + + Unavailable | Unavailable | + + + + Unavailable | Unavailable | + + + + Unavailable | Unavailable | + + + + Allergies No information. Encounters No information. Functional Status No information. Immunizations + + + + | date | description | facility | + + + + | 2018-05-26 00:00 | Tdap | [facility] | + + + + | 2018-05-26 00:00 | Tdap | [facility] | + + + + Medications + + + + | date | description | facility | + + + + | 2022-05-27 00:00 | MUPIROCIN | [facility] | + + + + | 2018-12-07 00:00 | mupirocin 2 % topical | [facility] | | | ointment | | + + + + | 2021-05-15 00:00 | calcium carbonate 1250 mg / | [facility] | | | cholecalciferol 200 unt | | | | oral tablet [oysco 500 with | | | | d] | | + + + + | 2018-12-08 00:00 | acetaminophen 500 mg oral | [facility] | | | tablet | | + + + + | 2022-04-27 00:00 | bacitracin 400 unt / | [facility] | | | neomycin 3.5 mg / polymyxin | | | | b 5000 unt per gm topical | | | | ointment | | + + + + | 2022-05-27 00:00 | ATORVASTATIN CALCIUM | [facility] | + + + + | 2022-07-19 00:00 | ATORVASTATIN CALCIUM | [facility] | + + + + | 2022-05-27 00:00 | ASPIRIN | [facility] | + + + + | 2022-07-19 00:00 | ASPIRIN | [facility] | + + + + | 2021-08-16 00:00 | aspirin 81 mg delayed | [facility] | | | release oral tablet | | + + + + | 2022-05-27 00:00 | SERTRALINE HCL | [facility] | + + + + | 2022-07-19 00:00 | SERTRALINE HCL | [facility] | + + + + | 2021-06-28 00:00 | sertraline (as sertraline | [facility] | | | hcl) 100 mg oral tablet | | + + + + | 2021-11-06 00:00 | amoxicillin 875 mg / | [facility] | | | clavulanate 125 mg oral | | | | tablet | | + + + + | 2019-11-01 00:00 | atorvastatin (as | [facility] | | | atorvastatin calcium) 40 mg | | | | oral tablet | | + + + + | 2022-04-27 00:00 | tolnaftate 0.01 mg/mg | [facility] | | | powder spray | | + + + + | 2022-04-27 00:00 | tinactin 1 % powder spray | [facility] | + + + + | 2022-05-27 00:00 | WARFARIN SODIUM | [facility] | + + + + | 2022-07-19 00:00 | WARFARIN SODIUM | [facility] | + + + + | 2021-08-20 00:00 | warfarin sodium 3 mg oral | [facility] | | | tablet | | + + + + | 2021-11-29 00:00 | warfarin sodium 3 mg oral | [facility] | | | tablet | | + + + + | 2022-05-27 00:00 | METOPROLOL SUCCINATE | [facility] | + + + + | 2022-07-19 00:00 | METOPROLOL SUCCINATE | [facility] | + + + + | 2021-07-05 00:00 | metoprolol succinate 25 mg | [facility] | | | 24hr extended release oral | | | | tablet | | + + + + | 2022-07-19 00:00 | LEVOTHYROXINE SODIUM | [facility] | + + + + Problems + + + + | date | description | facility | + + + + | 2014-10-31 00:00 | Foreign body in ear | [facility] | + + + + | 2014-10-31 00:00 | Foreign body in ear | [facility] | + + + + | 2018-05-26 00:00 | Laceration of finger | [facility] | + + + + | 2018-05-26 00:00 | Laceration of finger | [facility] | + + + + | 2018-11-13 00:00 | patient encounter status | [facility] | | | (finding) | | + + + + | 2018-11-13 00:00 | long-term current use of | [facility] | | | anticoagulant (situation) | | + + + + | 2018-11-13 00:00 | history of mechanical | [facility] | | | mitral valve replacement | | | | (situation) | | + + + + | 2018-11-13 00:00 | Encounter for therapeutic | [facility] | | | drug monitoring | | + + + + | 2018-11-13 00:00 | manager intermediate (current) use of | [facility] | | | anticoagulants | | + + + + | 2018-11-13 00:00 | H/O mitral valve | [facility] | | | replacement with mechanical | | | | valve | | + + + + | 2018-12-01 00:00 | Vertigo | [facility] | + + + + | 2018-12-01 00:00 | Vertigo | [facility] | + + + + | 2018-12-01 00:00 | History of valvular heart | [facility] | | | disease | | + + + + | 2018-12-01 00:00 | History of valvular heart | [facility] | | | disease | | + + + + | 2018-12-03 00:00 | tico - generalized anxiety | [facility] | | | disorder | | + + + + | 2018-12-03 00:00 | hld - hyperlipidemia | [facility] | + + + + | 2018-12-03 00:00 | systemic primary arterial | [facility] | | | hypertension | | + + + + | 2018-12-03 00:00 | Hyperlipidemia | [facility] | + + + + | 2018-12-03 00:00 | Generalized anxiety | [facility] | | | disorder | | + + + + | 2018-12-03 00:00 | Essential hypertension | [facility] | + + + + | 2019-04-19 00:00 | Pneumonia | [facility] | + + + + | 2019-04-19 00:00 | Pneumonia | [facility] | + + + + | 2021-01-23 00:00 | kamron - obstructive sleep | [facility] | | | apnea | | + + + + | 2021-01-23 00:00 | KAMRON on CPAP | [facility] | + + + + | 2022-05-27 00:00 | Altered mental status | [facility] | + + + + | 2022-05-27 00:00 | Altered mental status | [facility] | + + + + | 2022-07-19 00:00 | Contusion of right foot | [facility] | + + + + | 2023-04-29 16:45 | PRIMARY CENTRAL SLEEP | [facility] | | | APNEA | | + + + + | 2023-04-29 16:45 | IDIO SLEEP RELATED | [facility] | | | NONOBSTRUCTIVE ALVEOL | | + + + + Procedures + + + + | date | description | facility | + + + + | 2021-11-19 00:00 | CHG PROTHROMBIN TIME | [facility] | + + + + | 2021-12-18 00:00 | CHG PROTHROMBIN TIME | [facility] | + + + + | 2021-12-24 00:00 | CHG PROTHROMBIN TIME | [facility] | + + + + | 2022-01-28 00:00 | CHG PROTHROMBIN TIME | [facility] | + + + + Results/Labs +--------+--------+ + +---------+--------+ + | test | date | author | facility | value | unit | | | | | | | | | interpreta | | | | | | | | tion | +--------+--------+ + +---------+--------+ + + + | Result panel 1 | + + + + + + +---------+ + + | (unknown) | (no date) | (unknown) | [facility] | (no | (units | (unknown) | | | | | Clinic | value) | unknown) | | + + + + +---------+ + + + + | Result panel 2 | + + + + + + +---------+ + + | (unknown) | (no date) | (unknown) | [facility] | (no | (units | (unknown) | | | | | Clinic | value) | unknown) | | + + + + +---------+ + + + + | Result panel 3 | + + + + + + +---------+ + + | (unknown) | (no date) | (unknown) | [facility] | (no | (units | (unknown) | | | | | Clinic | value) | unknown) | | + + + + +---------+ + + + + | Result panel 4 | + + + + + + +---------+ + + | (unknown) | (no date) | (unknown) | [facility] | (no | (units | (unknown) | | | | | Clinic | value) | unknown) | | + + + + +---------+ + + + + | Result panel 5 | + + + + + + +---------+ + + | (unknown) | (no date) | (unknown) | [facility] | (no | (units | (unknown) | | | | [facility] | value) | unknown) | | | | [facility] | | | | + + + + +---------+ + + + + | Result panel 6 | + + + + + + +---------+ + + | (unknown) | (no date) | (unknown) | [facility] | (no | (units | (unknown) | | | | | [facility] | value) | unknown) | | | | | [facility] | | | | + + + + +---------+ + + + + | Result panel 7 | + + + + + + +---------+ + + | (unknown) | (no date) | (unknown) | [facility] | (no | (units | (unknown) | | | | | [facility] | value) | unknown) | | | | | [facility] | | | | + + + + +---------+ + + + + | Result panel 8 | + + + + + + +---------+ + + | (unknown) | (no date) | (unknown) | [facility] | (no | (units | (unknown) | | | | | [facility] | value) | unknown) | | | | | [facility] | | | | + + + + +---------+ + + + + | Result panel 9 | + + + + + + +---------+ + + | (unknown) | (no date) | (unknown) | [facility] | (no | (units | (unknown) | | | | | [facility] | value) | unknown) | | | | | [facility] | | | | + + + + +---------+ + + + + | Result panel 10 | + + + + + + +---------+ + + | (unknown) | (no date) | (unknown) | [facility] | (no | (units | (unknown) | | | | | [facility] | value) | unknown) | | | | | [facility] | | | | + + + + +---------+ + + + + | Result panel 11 | + + + + + + +---------+ + + | (unknown) | (no date) | (unknown) | [facility] | (no | (units | (unknown) | | | | | [facility] | value) | unknown) | | | | | [facility] | | | | + + + + +---------+ + + + + | Result panel 12 | + + + + + + +---------+ + + | (unknown) | (no date) | (unknown) | [facility] | (no | (units | (unknown) | | | | | Clinic | value) | unknown) | | + + + + +---------+ + + + + | Result panel 13 | + + + + + + +---------+ + + | (unknown) | (no date) | (unknown) | [facility] | (no | (units | (unknown) | | | | | [facility] | value) | unknown) | | | | | [facility] | | | | + + + + +---------+ + + + + | Result panel 14 | + + + + + + +---------+ + + | (unknown) | (no date) | (unknown) | [facility] | (no | (units | (unknown) | | | | | [facility] | value) | unknown) | | | | | [facility] | | | | + + + + +---------+ + + + + | Result panel 15 | + + + + + + +---------+ + + | (unknown) | (no date) | (unknown) | [facility] | (no | (units | (unknown) | | | | | [facility] | value) | unknown) | | | | | [facility] | | | | + + + + +---------+ + + + + | Result panel 16 | + + + + + + +---------+ + + | (unknown) | (no date) | (unknown) | [facility] | (no | (units | (unknown) | | | | | [facility] | value) | unknown) | | | | | [facility] | | | | + + + + +---------+ + + + + | Result panel 17 | + + + + + + +---------+ + + | (unknown) | (no date) | (unknown) | [facility] | (no | (units | (unknown) | | | | | [facility] | value) | unknown) | | | | | [facility] | | | | + + + + +---------+ + + + + | Result panel 18 | + + + + + + +---------+ + + | (unknown) | (no date) | (unknown) | [facility] | (no | (units | (unknown) | | | | | [facility] | value) | unknown) | | | | | [facility] | | | | + + + + +---------+ + + + + | Result panel 19 | + + + + + + +---------+ + + | (unknown) | (no date) | (unknown) | [facility] | (no | (units | (unknown) | | | | | [facility] | value) | unknown) | | | | | [facility] | | | | + + + + +---------+ + + + + | Result panel 20 | + + + + + + +---------+ + + | (unknown) | (no date) | (unknown) | [facility] | (no | (units | (unknown) | | | | | [facility] | value) | unknown) | | | | | [facility] | | | | + + + + +---------+ + + + + | Result panel 21 | + + + + + + +---------+ + + | (unknown) | (no date) | (unknown) | [facility] | (no | (units | (unknown) | | | | | [facility] | value) | unknown) | | | | | [facility] | | | | + + + + +---------+ + + + + | Result panel 22 | + + + + + + +---------+ + + | (unknown) | (no date) | (unknown) | [facility] | (no | (units | (unknown) | | | | | [facility] | value) | unknown) | | | | | [facility] | | | | + + + + +---------+ + + + + | Result panel 23 | + + + + + + +---------+ + + | (unknown) | (no date) | (unknown) | [facility] | (no | (units | (unknown) | | | | | [facility] | value) | unknown) | | + + + + +---------+ + + + + | Result panel 24 | + + + + + + +---------+ + + | (unknown) | (no date) | (unknown) | [facility] | (no | (units | (unknown) | | | | | [facility] | value) | unknown) | | | | | [facility] | | | | + + + + +---------+ + + + + | Result panel 25 | + + + + + + +---------+ + + | (unknown) | (no date) | (unknown) | [facility] | (no | (units | (unknown) | | | | | [facility] | value) | unknown) | | | | | [facility] | | | | + + + + +---------+ + + + + | Result panel 26 | + + + + + + +---------+ + + | (unknown) | (no date) | (unknown) | [facility] | (no | (units | (unknown) | | | | | [facility] | value) | unknown) | | | | | [facility] | | | | + + + + +---------+ + + + + | Result panel 27 | + + + + + + +---------+ + + | (unknown) | (no date) | (unknown) | [facility] | (no | (units | (unknown) | | | | | [facility] | value) | unknown) | | | | | [facility] | | | | + + + + +---------+ + + + + | Result panel 28 | + + + + + + +---------+ + + | (unknown) | (no date) | (unknown) | [facility] | (no | (units | (unknown) | | | | | [facility] | value) | unknown) | [facility] | | [facility] | | | | + + + + +---------+ + + + + | Result panel 29 | + + + + + + +---------+ + + | (unknown) | (no date) | (unknown) | [facility] | (no | (units | (unknown) | | | | | [facility] | value) | unknown) | | | | | [facility] | | | | + + + + +---------+ + + + + | Result panel 30 | + + + + + + +---------+ + + | (unknown) | (no date) | (unknown) | [facility] | (no | (units | (unknown) | | | | | [facility] | value) | unknown) | | | | | [facility] | | | | + + + + +---------+ + + + + | Result panel 31 | + + + + + + +---------+ + + | (unknown) | (no date) | (unknown) | [facility] | (no | (units | (unknown) | | | | | [facility] | value) | unknown) | | | | | [facility] | | | | + + + + +---------+ + + + + | Result panel 32 | + + + + + + +---------+ + + | (unknown) | (no date) | (unknown) | [facility] | (no | (units | (unknown) | | | | | [facility] | value) | unknown) | | | | | [facility] | | | | + + + + +---------+ + + + + | Result panel 33 | + + + + + + +---------+ + + | (unknown) | (no date) | (unknown) | [facility] | (no | (units | (unknown) | | | | | [facility] | value) | unknown) | | | | | [facility] | | | | + + + + +---------+ + + + + | Result panel 34 | + + + + + + +---------+ + + | (unknown) | (no date) | (unknown) | [facility] | (no | (units | (unknown) | | | | | Clinic | value) | unknown) | | + + + + +---------+ + + + + | Result panel 35 | + + + + + + +---------+ + + | (unknown) | (no date) | (unknown) | [facility] | (no | (units | (unknown) | | | | | [facility] | value) | unknown) | [facility] | | | [facility] | | | | + + + + +---------+ + + + + | Result panel 36 | + + + + + + +---------+ + + | (unknown) | (no date) | (unknown) | [facility] | (no | (units | (unknown) | | | | | [facility] | value) | unknown) | [facility] | | | [facility] | | | | + + + + +---------+ + + + + | Result panel 37 | + + + + + + +---------+ + + | (unknown) | (no date) | (unknown) | [facility] | (no | (units | (unknown) | | | | | [facility] | value) | unknown) | | | | | [facility] | | | | + + + + +---------+ + + + + | Result panel 38 | + + + + + + +---------+ + + | (unknown) | (no date) | (unknown) | [facility] | (no | (units | (unknown) | | | | | [facility] | value) | unknown) | | | | | [facility] | | | | + + + + +---------+ + + + + | Result panel 39 | + + + + + + +---------+ + + | (unknown) | (no date) | (unknown) | [facility] | (no | (units | (unknown) | | | | | [facility] | value) | unknown) | | | | | [facility] | | | | + + + + +---------+ + + + + | Result panel 40 | + + + + + + +---------+ + + | (unknown) | (no date) | (unknown) | [facility] | (no | (units | (unknown) | | | | | [facility] | value) | unknown) | | | | | [facility] | | | | + + + + +---------+ + + + + | Result panel 41 | + + + + + + +---------+ + + | (unknown) | (no date) | (unknown) | [facility] | (no | (units | (unknown) | | | | | [facility] | value) | unknown) | | | | | [facility] | | | | + + + + +---------+ + + + + | Result panel 42 | + + + + + + +---------+ + + | (unknown) | (no date) | (unknown) | [facility] | (no | (units | (unknown) | | | | | [facility] | value) | unknown) | | | | | [facility] | | | | + + + + +---------+ + + + + | Result panel 43 | + + + + + + +---------+ + + | (unknown) | (no date) | (unknown) | [facility] | (no | (units | (unknown) | | | | | [facility] | value) | unknown) | | | | | [facility] | | | | + + + + +---------+ + + + + | Result panel 44 | + + + + + + +---------+ + + | (unknown) | (no date) | (unknown) | [facility] | (no | (units | (unknown) | | | | | [facility] | value) | unknown) | | | | | [facility] | | | | + + + + +---------+ + + + + | Result panel 45 | + + + + + + +---------+ + + | (unknown) | (no date) | (unknown) | [facility] | (no | (units | (unknown) | | | | | Clinic | value) | unknown) | | + + + + +---------+ + + + + | Result panel 46 | + + + + + + +---------+ + + | (unknown) | (no date) | (unknown) | [facility] | (no | (units | (unknown) | | | | | [facility] | value) | unknown) | | | | | [facility] | | | | + + + + +---------+ + + + + | Result panel 47 | + + + + + + +---------+ + + | (unknown) | (no date) | (unknown) | [facility] | (no | (units | (unknown) | | | | | [facility] | value) | unknown) | | | | | [facility] | | | | + + + + +---------+ + + + + | Result panel 48 | + + + + + + +---------+ + + | (unknown) | (no date) | (unknown) | [facility] | (no | (units | (unknown) | | | | | [facility] | value) | unknown) | | | | | [facility] | | | | + + + + +---------+ + + + + | Result panel 49 | + + + + + + +---------+ + + | (unknown) | (no date) | (unknown) | [facility] | (no | (units | (unknown) | | | | | [facility] | value) | unknown) | | | | | [facility] | | | | + + + + +---------+ + + + + | Result panel 50 | + + + + + + +---------+ + + | (unknown) | (no date) | (unknown) | [facility] | (no | (units | (unknown) | | | | | [facility] | value) | unknown) | | | | | [facility] | | | | + + + + +---------+ + + + + | Result panel 51 | + + + + + + +---------+ + + | (unknown) | (no date) | (unknown) | [facility] | (no | (units | (unknown) | | | | | [facility] | value) | unknown) | | | | | [facility] | | | | + + + + +---------+ + + + + | Result panel 52 | + + + + + + +---------+ + + | (unknown) | (no date) | (unknown) | [facility] | (no | (units | (unknown) | | | | | [facility] | value) | unknown) | | | | | [facility] | | | | + + + + +---------+ + + + + | Result panel 53 | + + + + + + +---------+ + + | (unknown) | (no date) | (unknown) | [facility] | (no | (units | (unknown) | | | | | [facility] | value) | unknown) | | | | | [facility] | | | | + + + + +---------+ + + + + | Result panel 54 | + + + + + + +---------+ + + | (unknown) | (no date) | (unknown) | [facility] | (no | (units | (unknown) | | | | | [facility] | value) | unknown) | | | | | [facility] | | | | + + + + +---------+ + + + + | Result panel 55 | + + + + + + +---------+ + + | (unknown) | (no date) | (unknown) | [facility] | (no | (units | (unknown) | | | | | [facility] | value) | unknown) | | | | | [facility] | | | | + + + + +---------+ + + + + | Result panel 56 | + + + + + + +---------+ + + | (unknown) | (no date) | (unknown) | [facility] | (no | (units | (unknown) | | | | | Clinic | value) | unknown) | | + + + + +---------+ + + + + | Result panel 57 | + + + + + + +---------+ + + | (unknown) | (no date) | (unknown) | [facility] | (no | (units | (unknown) | | | | | [facility] | value) | unknown) | | | | | [facility] | | | | + + + + +---------+ + + + + | Result panel 58 | + + + + + + +---------+ + + | (unknown) | (no date) | (unknown) | [facility] | (no | (units | (unknown) | | | | | [facility] | value) | unknown) | | | | | [facility] | | | | + + + + +---------+ + + + + | Result panel 59 | + + + + + + +---------+ + + | (unknown) | (no date) | (unknown) | [facility] | (no | (units | (unknown) | | | | | [facility] | value) | unknown) | | | | | [facility] | | | | + + + + +---------+ + + + + | Result panel 60 | + + + + + + +---------+ + + | (unknown) | (no date) | (unknown) | [facility] | (no | (units | (unknown) | | | | | [facility] | value) | unknown) | | | | | [facility] | | | | + + + + +---------+ + + + + | Result panel 61 | + + + + + + +---------+ + + | (unknown) | (no date) | (unknown) | [facility] | (no | (units | (unknown) | | | | | [facility] | value) | unknown) | | | | | [facility] | | | | + + + + +---------+ + + + + | Result panel 62 | + + + + + + +---------+ + + | (unknown) | (no date) | (unknown) | [facility] | (no | (units | (unknown) | | | | | [facility] | value) | unknown) | | | | | [facility] | | | | + + + + +---------+ + + + + | Result panel 63 | + + + + + + +---------+ + + | (unknown) | (no date) | (unknown) | [facility] | (no | (units | (unknown) | | | | | [facility] | value) | unknown) | | | | | [facility] | | | | + + + + +---------+ + + + + | Result panel 64 | + + + + + + +---------+ + + | (unknown) | (no date) | (unknown) | [facility] | (no | (units | (unknown) | | | | | [facility] | value) | unknown) | | | | | [facility] | | | | + + + + +---------+ + + + + | Result panel 65 | + + + + + + +---------+ + + | (unknown) | (no date) | (unknown) | [facility] | (no | (units | (unknown) | | | | | [facility] | value) | unknown) | | | | | [facility] | | | | + + + + +---------+ + + + + | Result panel 66 | + + + + + + +---------+ + + | (unknown) | (no date) | (unknown) | [facility] | (no | (units | (unknown) | | | | | [facility] | value) | unknown) | | | | | [facility] | | | | + + + + +---------+ + + + + | Result panel 67 | + + + + + + +---------+ + + | (unknown) | (no date) | (unknown) | [facility] | (no | (units | (unknown) | | | | | Clinic | value) | unknown) | | + + + + +---------+ + + + + | Result panel 68 | + + + + + + +---------+ + + | (unknown) | (no date) | (unknown) | [facility] | (no | (units | (unknown) | | | | | [facility] | value) | unknown) | | | | | [facility] | | | | + + + + +---------+ + + + + | Result panel 69 | + + + + + + +---------+ + + | (unknown) | (no date) | (unknown) | [facility] | (no | (units | (unknown) | | | | | [facility] | value) | unknown) | | [facility] | | [facility] | | | | + + + + +---------+ + + + + | Result panel 70 | + + + + + + +---------+ + + | (unknown) | (no date) | (unknown) | [facility] | (no | (units | (unknown) | | | | | [facility] | value) | unknown) | | | | | [facility] | | | | + + + + +---------+ + + + + | Result panel 71 | + + + + + + +---------+ + + | (unknown) | (no date) | (unknown) | [facility] | (no | (units | (unknown) | | | | | [facility] | value) | unknown) | | | | | [facility] | | | | + + + + +---------+ + + + + | Result panel 72 | + + + + + + +---------+ + + | (unknown) | (no date) | (unknown) | [facility] | (no | (units | (unknown) | | | | | [facility] | value) | unknown) | | | | | [facility] | | | | + + + + +---------+ + + + + | Result panel 73 | + + + + + + +---------+ + + | (unknown) | (no date) | (unknown) | [facility] | (no | (units | (unknown) | | | | | [facility] | value) | unknown) | | [facility] | | [facility] | | | | + + + + +---------+ + + + + | Result panel 74 | + + + + + + +---------+ + + | (unknown) | (no date) | (unknown) | [facility] | (no | (units | (unknown) | | | | | [facility] | value) | unknown) | | | | | [facility] | | | | + + + + +---------+ + + + + | Result panel 75 | + + + + + + +---------+ + + | (unknown) | (no date) | (unknown) | [facility] | (no | (units | (unknown) | | | | | [facility] | value) | unknown) | | | | | [facility] | | | | + + + + +---------+ + + + + | Result panel 76 | + + + + + + +---------+ + + | (unknown) | (no date) | (unknown) | [facility] | (no | (units | (unknown) | | | | | [facility] | value) | unknown) | | | | | | [facility] | | | | + + + + +---------+ + + + + | Result panel 77 | + + + + + + +---------+ + + | (unknown) | (no date) | (unknown) | [facility] | (no | (units | (unknown) | | | | | [facility] | value) | unknown) | | | | | | [facility] | | | | + + + + +---------+ + + + + | Result panel 78 | + + + + + + +---------+ + + | (unknown) | (no date) | (unknown) | [facility] | (no | (units | (unknown) | | | | | [facility] | value) | unknown) | | + + + + +---------+ + + + + | Result panel 79 | + + + + + + +---------+ + + | (unknown) | (no date) | (unknown) | [facility] | (no | (units | (unknown) | | | | | [facility] | value) | unknown) | | | | | | [facility] | | | | + + + + +---------+ + + + + | Result panel 80 | + + + + + + +---------+ + + | (unknown) | (no date) | (unknown) | [facility] | (no | (units | (unknown) | | | | | [facility] | value) | unknown) | | | | | | [facility] | | | | + + + + +---------+ + + + + | Result panel 81 | + + + + + + +---------+ + + | (unknown) | (no date) | (unknown) | [facility] | (no | (units | (unknown) | | | | | [facility] | value) | unknown) | | | | | | [facility] | | | | + + + + +---------+ + + + + | Result panel 82 | + + + + + + +---------+ + + | (unknown) | (no date) | (unknown) | [facility] | (no | (units | (unknown) | | | | | [facility] | value) | unknown) | | | | | | [facility] | | | | + + + + +---------+ + + + + | Result panel 83 | + + + + + + +---------+ + + | (unknown) | (no date) | (unknown) | [facility] | (no | (units | (unknown) | | | | | Clinic | value) | unknown) | | + + + + +---------+ + + Social History + + + + | date | description | facility | + + + + | 2018-12-03 00:00 | Never smoked tobacco | [facility] | + + + + Vital Signs + + + +---------+ | date | measurement | value | units | + + + +---------+ | 2022-05-27 00:00 | BMI | 28.5 | kg/m2 | + + + +---------+ | 2022-05-27 00:00 | BP_diastolic | 71 | mmHg | + + + +---------+ | 2022-05-27 00:00 | BP_systolic | 126 | mmHg | + + + +---------+ | 2022-05-27 00:00 | heart_rate | 78 | /min | + + + +---------+ | 2022-05-27 00:00 | height_metric | 175.26 | cm | + + + +---------+ | 2022-05-27 00:00 | height_standard | 69 | in | + + + +---------+ | 2022-05-27 00:00 | o2_saturation | 98 | % | + + + +---------+ | 2022-05-27 00:00 | respiration_rate | 19 | /min | + + + +---------+ | 2022-05-27 00:00 | temperature_metric | 37 | C | | | | | | + + + +---------+ | 2022-05-27 00:00 | | 98.6 | F | | | temperature_standar | | | | | d | | | + + + +---------+ | 2022-05-27 00:00 | weight_metric | 87.54 | kg | + + + +---------+ | 2022-05-27 00:00 | weight_standard | 192.99 | lb | + + + +---------+ | 2022-05-27 00:00 | weight_standard | 193 | lb | + + + +---------+ | 2022-07-19 00:00 | BMI | 29.3 | kg/m2 | + + + +---------+ | 2022-07-19 00:00 | BP_diastolic | 73 | mmHg | + + + +---------+ | 2022-07-19 00:00 | BP_systolic | 108 | mmHg | + + + +---------+ | 2022-07-19 00:00 | heart_rate | 67 | /min | + + + +---------+ | 2022-07-19 00:00 | height_metric | 175.26 | cm | + + + +---------+ | 2022-07-19 00:00 | height_standard | 69 | in | + + + +---------+ | 2022-07-19 00:00 | o2_saturation | 97 | % | + + + +---------+ | 2022-07-19 00:00 | respiration_rate | 18 | /min | + + + +---------+ | 2022-07-19 00:00 | temperature_metric | 36.83 | C | | | | | | + + + +---------+ | 2022-07-19 00:00 | | 98.3 | F | | | temperature_standar | | | | | d | | | + + + +---------+ | 2022-07-19 00:00 | weight_metric | 90 | kg | + + + +---------+ | 2022-07-19 00:00 | weight_standard | 198.42 | lb | + + + +---------+"
--- OUTSIDE RECORDS SUMMARY | ~2023-05-20 | XMS | Continuity of Care Document ---
Demographics + + + | Address | [address] | | | [place] [address] | + + + | Preferred Language | Unknown | + + + | Marital Status | Never | + + + | Orthodox Affiliation | Unknown | + + + | Race | White | + + + | Ethnic Group | Not or | + + + Author + + + | Author | [facility] | + + + | Organization | [facility] | + + + | Address | [address] | | | [place] [address] | + + + | Phone | | + + + Care Team Providers + + + + | Care Gun Examiner Name | Role | Phone | + [...] + | 2018-05-26 00:00 | Tdap | [facility] | + + + + | 2018-05-26 00:00 | Tdap | [facility] | + + + + Medications + + + + | date | description | facility | + + + + | 2022-05-27 00:00 | MUPIROCIN | [facility] | + + + + | 2018-12-07 [...] | 2022-05-27 00:00 | ATORVASTATIN CALCIUM | [facility] | + + + + | 2022-07-19 00:00 | ATORVASTATIN CALCIUM | [facility] | + + + + | 2022-05-27 00:00 | ASPIRIN | [facility] | + + + + | 2022-07-19 00:00 | ASPIRIN | [facility] | + + + + | 2021-08-16 00:00 | aspirin 81 mg delayed | [facility] | | | release oral tablet | | + + + + | 2022-05-27 00:00 | SERTRALINE HCL | [facility] | + + + + | 2022-07-19 00:00 | SERTRALINE HCL | [facility] | + + + + | 2021-06-28 [...] | 2022-05-27 00:00 | WARFARIN SODIUM | [facility] | + + + + | 2022-07-19 00:00 | WARFARIN SODIUM | [facility] | + + + + | 2021-08-20 00:00 | warfarin sodium 3 mg oral | [facility] | | | tablet | | + + + + | 2021-11-29 00:00 | warfarin sodium 3 mg oral | [facility] | | | tablet | | + + + + | 2022-05-27 00:00 | METOPROLOL SUCCINATE | [facility] | + + + + | 2022-07-19 00:00 | METOPROLOL SUCCINATE | [facility] | + + + + | 2021-07-05 00:00 | metoprolol succinate 25 mg | [facility] | | | 24hr extended release oral | | | | tablet | | + + + + | 2022-07-19 00:00 | LEVOTHYROXINE SODIUM | [facility] | + + + + Problems + + + + | date | description | facility | + + + + | 2014-10-31 00:00 | Foreign body in ear | [facility] | + + + + | 2014-10-31 00:00 | Foreign body in ear | [facility] | + + + + | 2018-05-26 00:00 | Laceration of finger | [facility] | + + + + | 2018-05-26 00:00 | Laceration of finger | [facility] | + + + + | 2018-11-13 [...] + + + | 2018-11-13 00:00 | 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 | [facility] | | | anticoagulants | | + + + + | 2018-11-13 00:00 | H/O mitral valve | [facility] | | | replacement with mechanical | | | | valve | | + + + + | 2018-12-01 00:00 | Vertigo | [facility] | + + + + | 2018-12-01 00:00 | Vertigo | [facility] | + + + + | 2018-12-01 00:00 | History of valvular heart | [facility] | | | disease | | + + + + | 2018-12-01 00:00 | History of valvular heart | [facility] | | | disease | | + + + + | 2018-12-03 00:00 | tico - generalized anxiety | [facility] | | | disorder | | + [...] + | 2019-04-19 00:00 | Pneumonia | [facility] | + + + + | 2019-04-19 00:00 | Pneumonia | [facility] | + + + + | 2021-01-23 00:00 | kamron - obstructive sleep | [facility] | | | apnea | | + + + + | 2021-01-23 00:00 | KAMRON on CPAP | [facility] | + + + + | 2022-05-27 00:00 | Altered mental status | [facility] | + + + + | 2022-05-27 00:00 | Altered mental status | [facility] | + + + + | 2022-07-19 00:00 | Contusion of right foot | [facility] | + + + + | 2023-04-29 [...] | (unknown) | | | | | Laorn | value) | unknown) | | | [...]
[~2023-05-20 14:33] MED LIST changes: +LEVOTHYROXINE25 MCG PO
[2023-05-20] MEDS ORDERED: MACROBID 100 M100 MG PO (19:01)
[2023-05-20 19:43] VITALS: BP 120/81
== END 2023-05-20 19:49 | disposition home or self-care (01) ==
LOC: ED 14:33
DX: R31.9 Hematuria, unspecified (principal); Z79.899 Other long term (current) drug therapy; Z79.890 Hormone replacement therapy; Z79.82 Long term (current) use of aspirin; Z79.01 Long term (current) use of anticoagulants
CPT/HCPCS: 36415; 51702; 51798; 81001; 85610; 99283 25

== ENCOUNTER 2023-11-05 11:57 | Emergency (ER) | payer MEDICARE, OTHER ==
[~2023-11-05] VITALS: Ht 175.3 cm; Wt 95.0 kg
[~2023-11-05 11:57] MED LIST changes: +MACROBID 100 M100 MG PO
[2023-11-05 12:58] VITALS: BP 137/77
== END 2023-11-05 12:58 | disposition home or self-care (01) ==
LOC: ED 11:57
DX: S01.502A Unspecified open wound of oral cavity, initial encounter (principal); E78.00 Pure hypercholesterolemia, unspecified; F41.9 Anxiety disorder, unspecified; X58.XXXA Exposure to other specified factors, initial encounter; Z79.01 Long term (current) use of anticoagulants; Z79.890 Hormone replacement therapy; Z79.899 Other long term (current) drug therapy; Z79.82 Long term (current) use of aspirin
CPT/HCPCS: 99283

== ENCOUNTER 2025-05-02 22:32 | Emergency (ER) | payer MEDICARE, OTHER ==
[~2025-05-02] VITALS: Ht 175.3 cm; Wt 97.8 kg
[2025-05-02] MEDS ORDERED: DIPHTH,PERTUSS(ACELL),TET VAC 0.5 ML SYRINGE IM ONE (23:15)
[2025-05-02 23:19] LABS: BASOPHILS 0.5 % (0.2-1.2); EOSINOPHILS 1.8 % (0.8-7.0); HEMATOCRIT 40.5 % (40.1-51.0); HEMOGLOBIN 13.6 g/dL (13.7-17.5); LYMPHOCYTES 18.4 % (21.8-53.1); MCH 29.3 PG (25.7-32.2); MCHC 33.6 g/dL (32.3-36.5); MCV 87.3 fL (79.0-92.2); MONOCYTES 11.3 % (5.3-12.2); NEUTROPHILS 67.8 % (34.0-67.9); PLATELET COUNT 169 K/uL (163-337); RBC 4.64 M/uL (4.63-6.08)
[2025-05-02 23:38] LABS: ALBUMIN 3.9 g/dL (3.4-5.0); ALBUMIN/GLOBULIN RATIO 1.05 (1.1-2.4); ALCOHOL, MEDICAL <3 ng/dL (<3); ALKALINE PHOSPHATASE 141 U/L (46-116); ALT (SGPT) 32 U/L (14-59); ANION GAP 12.9 (7-21); AST (SGOT) 34 U/L (15-37); BILIRUBIN, TOTAL 0.6 mg/dL (0.2-1.0); BUN/CREATININE RATIO 15.96 (6.0-28.6); CALCIUM 7.7 mg/dL (8.5-10.1); CARBON DIOXIDE 26 mmol/L (21-32); CHLORIDE 104 mmol/L (98-107); CREATININE, SERUM 1.19 mg/dL (0.70-1.30); GLOMERULAR FILTRATION RATE,EST 75 mL/min (>60); POTASSIUM 3.9 mmol/L (3.5-5.1); PROTEIN, TOTAL 7.6 g/dL (6.4-8.2); UREA NITROGEN 19 mg/dL (7-18)
[2025-05-03 00:03] VITALS: BP 126/85
== END 2025-05-03 00:15 | disposition home or self-care (01) ==
LOC: ED 22:32
PROVIDERS: Family Medicine
DX: S00.11XA Contusion of right eyelid and periocular area, initial encounter (principal); E78.00 Pure hypercholesterolemia, unspecified; G47.30 Sleep apnea, unspecified; S00.81XA Abrasion of other part of head, initial encounter; X58.XXXA Exposure to other specified factors, initial encounter; Z79.01 Long term (current) use of anticoagulants; Z79.82 Long term (current) use of aspirin; Z79.899 Other long term (current) drug therapy
CPT/HCPCS: 36415; 70450; 70486; 80053; 85025; 90471; 90715; 99283-25; G0480